=== PATIENT | female | born 1975 | race Caucasian/White ===

== ENCOUNTER → 2018-05-25 | Outpatient (CLI) | payer BC ==
--- NOTE | 2018-05-30 12:15 | MM ---
Reason for exam: screening (asymptomatic). Last mammogram was performed 2 years and 2 months ago. History: Family history of breast cancer in mother at age 52. Physical Findings: A clinical breast exam by your physician is recommended on an annual basis and results should be correlated with mammographic findings. MG 3D Screening Mammo W/Cad Bilateral CC and MLO view(s) were taken. XCCL view(s) were taken of the left breast. Prior study comparison: April 06, 2016, bilateral MG diagnostic mammo w CAD LINO. September 30, 2015, right breast MG 3d diag mammo w/cad RT. The breast tissue is heterogeneously dense. This may lower the sensitivity of mammography. There is chronic nodularity in the left breast. There is no dominant lesion. No significant changes when compared with prior studies. ASSESSMENT: Benign, BI-RAD 2 RECOMMENDATION: Routine screening mammogram of both breasts in 1 year.
== END | disposition home or self-care (01) ==
LOC: RADMAMWWP 12:54
PROVIDERS: ATTEND Obstetrics & Gynecology
DX: Z12.31 Encounter for screening mammogram for malignant neoplasm of breast (principal); Z80.3 Family history of malignant neoplasm of breast
CPT/HCPCS: 77063; 77067

== ENCOUNTER → 2019-05-25 | Outpatient (CLI) | payer BC ==
--- NOTE | 2019-05-26 09:15 | MM ---
Reason for exam: screening (asymptomatic). Last mammogram was performed 1 year ago. History: Family history of breast cancer in mother at age 52. Physical Findings: A clinical breast exam by your physician is recommended on an annual basis and results should be correlated with mammographic findings. MG 3D Screening Mammo W/Cad Bilateral CC, MLO, and XCCL view(s) were taken. Prior study comparison: May 25, 2018, bilateral MG 3d screening mammo w/cad. April 06, 2016, bilateral MG diagnostic mammo w CAD LINO. The breast tissue is heterogeneously dense. This may lower the sensitivity of mammography. No suspicious abnormality. No significant changes when compared with prior studies. ASSESSMENT: Negative, BI-RAD 1 RECOMMENDATION: Routine screening mammogram of both breasts in 1 year.
== END | disposition home or self-care (01) ==
LOC: RADMAMWWP 16:47
PROVIDERS: ATTEND Obstetrics & Gynecology
DX: Z12.31 Encounter for screening mammogram for malignant neoplasm of breast (principal); Z80.3 Family history of malignant neoplasm of breast
CPT/HCPCS: 77063; 77067

== ENCOUNTER → 2021-07-04 | Outpatient (CLI) | payer BC ==
--- NOTE | 2021-07-08 08:30 | MM ---
Reason for exam: screening (asymptomatic). Last mammogram was performed 1 year ago. History: Family history of breast cancer in mother at age 52. Physical Findings: A clinical breast exam by your physician is recommended on an annual basis and results should be correlated with mammographic findings. MG 3D Screening Mammo W/Cad Bilateral CC and MLO view(s) were taken. Prior study comparison: July 03, 2020, bilateral MG 3d screening mammo w/cad. May 25, 2019, bilateral MG 3d screening mammo w/cad. The breast tissue is heterogeneously dense. This may lower the sensitivity of mammography. No significant changes when compared with prior studies. ASSESSMENT: Benign, BI-RAD 2 RECOMMENDATION: Routine screening mammogram of both breasts in 1 year.
== END | disposition home or self-care (01) ==
LOC: RADMAMWWP 15:59
PROVIDERS: ATTEND Obstetrics & Gynecology
DX: Z12.31 Encounter for screening mammogram for malignant neoplasm of breast (principal); Z80.3 Family history of malignant neoplasm of breast
CPT/HCPCS: 77063; 77067

== ENCOUNTER → 2022-03-03 | Outpatient (CLI) | payer BC ==
[2022-03-03 22:45] LABS: Basophils # (A) 0.05 X 10*3/uL (0.00-0.10); Basophils % (A) 0.5 %; Eosinophils # (A) 0.22 X 10*3/uL (0.04-0.35); Eosinophils % (A) 2.1 %; HCT 41.1 % (37.2-46.3); HGB 12.6 g/dL (12.0-15.0); Immature Grans, Automated 0.4 %; Lymphocytes # (A) 3.07 X 10*3/uL (0.90-5.00); Lymphocytes % (A) 28.7 %; MCH 27.1 pg (27.0-32.0); MCHC 30.7 g/dL (32.0-37.0); MCV 88.4 fL (80.0-97.0); Mean Platelet Volume 12.4 fL (9.5-12.2); Monocytes # (A) 0.56 X 10*3/uL (0.20-1.00); Monocytes % (A) 5.2 %; NRBC Per 100 WBC 0 /100 WBCS (0.0-0.0); Neutrophils # (A) 6.74 X 10*3/uL (1.80-7.70); Neutrophils % (A) 63.1 %; Platelet Count 336 X 10*3/uL (140-440); RBC 4.65 X 10*6/uL (4.10-5.20); RDW 14.5 % (11.5-14.5); WBC 10.68 X 10*3/uL (4.50-10.00)
== END | disposition home or self-care (01) ==
LOC: LABPAT 16:06
PROVIDERS: ATTEND Surgery
DX: Z01.812 Encounter for preprocedural laboratory examination (principal); K43.2 Incisional hernia without obstruction or gangrene
CPT/HCPCS: 85025; 93005

== ENCOUNTER 2022-03-10 05:50 | Day surgery (SDC) | payer BC ==
[~2022-03-10 05:50] MED LIST: ACETAMINOPHEN TAB 500 MG TAB PO PRN; HEPARIN SODIUM,PORCINE/PF 5,000 UNIT/0.5 ML SYRINGE SQ PRN
[2022-03-10] MEDS ORDERED: SCOPOLAMINE 1 MG/72 HR PATCH TRANSDERM ONE (05:53)
[2022-03-10] MEDS ORDERED: LACTATED RINGERS 1,000 ML IV SCH (05:53)
[2022-03-10] MEDS ORDERED: DEXAMETHASONE SOD PHOSPHATE 4 MG/ML 1 ML VIAL IV ONE (05:53)
[2022-03-10] MEDS ORDERED: LIDOCAINE 1% (10MG/ML) FOR IV START INTRADERMA PRN (05:53)
[2022-03-10] MEDS ORDERED: METOCLOPRAMIDE 5 MG/ML 2 ML VIAL IVP PRN (05:53)
[2022-03-10] MEDS ORDERED: ONDANSETRON 4 MG/2 ML VIAL IVP ONE (05:53)
[2022-03-10] MEDS ORDERED: HYDROmorphone 0.5 MG/0.5 ML SYRINGE IVP PRN (05:53)
[2022-03-10 06:40] LABS: Glucose,Whole Blood 93 mg/dL (75-99)
[2022-03-10] MEDS ORDERED: MIDAZOLAM 2 MG/2 ML VIAL IVP ONE (06:52)
[2022-03-10 07:09] VITALS: RESP 16
[2022-03-10] MEDS ORDERED: fentaNYL (PF) 50 MCG/ML 2 ML AMP ONE (07:48)
[2022-03-10] MEDS ORDERED: SUGAMMADEX SODIUM 200 MG/2 ML SDV IV ONE (07:48)
[2022-03-10] MEDS ORDERED: ROCURONIUM 10 MG/ML (5 ML VIAL) IV ONE (07:48)
[2022-03-10] MEDS ORDERED: LIDOCAINE 2% INJ 20 MG/ML (2 ML VIAL) ONE (07:48)
[2022-03-10] MEDS ORDERED: MIDAZOLAM 2 MG/2 ML VIAL ONE (07:48)
[2022-03-10] MEDS ORDERED: SUCCINYLCHOLINE CHLORIDE 100 MG/5 ML SYR IV ONE (07:48)
[2022-03-10] MEDS ORDERED: KETOROLAC 30 MG/ML 1 ML VIAL ONE (07:48)
[2022-03-10] MEDS ORDERED: ROPIVACAINE 5 MG/ML 30 ML VIAL ONE (07:48)
[2022-03-10] MEDS ORDERED: PROPOFOL 10 MG/ML 20 ML VIAL IV ONE (07:48)
[2022-03-10] MEDS ORDERED: BUPIVACAIN-EPI 0.25%-1:200,000 30 ML VIAL SQ ONE ×2 (08:11→08:15)
--- NOTE | 2022-03-10 08:55 | P.GSHP ---
History of Present Illness H&P Date: 03/10/22 Chief Complaint: Ventral hernia A 46-year-old female. Patient's morbid obese. Patient developed a ventral hernia located approximately 5 inches above her umbilicus. She presents today for laparoscopic robotic system repair. 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 Past Anesthesia/Blood Transfusion Reactions: No Reported Reaction Smoking Status: Never smoker Medications and Allergies Home Medications Medication Instructions Recorded Confirmed Type No Known Home Medications 03/06/22 03/06/22 History Allergies Allergy/AdvReac Type Severity Reaction Status Date / Time No Known Allergies Allergy Verified 03/10/22 06:20 Surgical - Exam Vital Signs Temp Pulse Resp BP Pulse Ox 97.4 F L 81 20 148/97 99 03/10/22 06:28 03/10/22 06:28 03/10/22 06:28 03/10/22 06:28 03/10/22 06:28 - General Morbid obesity well developed, well nourished, no distress - Eyes PERRL - Respiratory normal expansion - Cardiovascular Rhythm: regular - Abdomen 5 cm mass midline approximately 5 inches above the umbilicus Abdomen: soft, non tender Assessment and Plan Assessment: Ventral hernia. We'll perform laparoscopic robotic-assisted repair.
[2022-03-10] MEDS ORDERED: LACTATED RINGERS 1,000 ML IV ONE (08:58)
--- NOTE | 2022-03-10 09:00 | P.OP ---
Date of Procedure: 03/10/22 Preoperative Diagnosis: Ventral hernia Postoperative Diagnosis: Incarcerated incisional hernia Adhesions Procedure(s) Performed: Diagnostic laparoscopy Open repair of incarcerated ventral hernia with Prolene mesh Transversus abdominis plane block Anesthesia: NADIRA Surgeon: Aakash Curtis Pathology: none sent Condition: stable Disposition: PACU Description of Procedure: The patient's placed on the operative table in the supine position. She received general endotracheal anesthesia. Her abdomen was prepped and draped in sterile fashion. Using a 5 mm optical trocar a fibrillar trocar was placed into the pleural cavity under direct visualization. There were significant adhesions. At this point in another 5 mm trocar was placed in the left lower quadrant and more adhesions were seen. This point decided perform an open repair. The trochars withdrawn. The skin was incised over top the hernia. Using cautery the subcutaneous tissue divided away from the hernia sac and fascia. The hernia sac was inverted back the pleural cavity. The fascia was then repaired using 0 Ethibond pop-off suture. A transversus abdominis plane block was performed using 1% local Xylocaine. After this is performed a piece of #1 strep excuses buttress the repair. And then Prolene mesh was secured with secure strap tacker. A DEJA drains placed over top the repair and brought through separate stab incision. Live's fascia close 0 Vicryl suture. Skin was closed with inna. Patient tolerated procedu re well sent to recovery in stable condition.
[2022-03-10 09:29] VITALS: TEMP 97.3
[2022-03-10 12:00] VITALS: BP 126/83; PULSE 81
--- NOTE | 2022-03-12 19:39 | P.ANPRN ---
Procedure Note - Anesthesia - Nerve Block Performed Bilateral Rectus Abdominis Single Time Out Performed: Yes Date of Procedure: 03/10/22 Procedure Start Time: 06:51 Procedure Stop Time: 06:57 Location of Patient: PreOp Indication: Acute Post-Operative Pain, Requested by Surgeon Sedation Type: Sedate with meaningful contact maintained Preparation: Sterile Prep Position: Supine Needle Types: Pajunk Needle Gauge: 21 Ultrasound used to visualize needle placement: Yes Ultrasound used to observe medication spread: Yes Blood Aspirated: No Pain Paresthesia on Injection Noted: No Resistance on Injection: Normal Image Stored and Saved: Yes Events: Uneventful and Well Tolerated (ropi .5% 20cc given bilaterally)
== END 2022-03-10 11:55 | disposition home or self-care (01) ==
LOC: OR 05:50
PROVIDERS: ATTEND Surgery
DX: K43.0 Incisional hernia with obstruction, without gangrene (principal); E66.01 Morbid (severe) obesity due to excess calories; Z68.41 Body mass index [BMI] 40.0-44.9, adult; Z98.890 Other specified postprocedural states
CPT/HCPCS: 49561; 49568; 64488; 86900; 86901; 86850; C1781; J2250; J1100; J0690; J2405; J3010; J1885; J2795; J0330; J2704; J1644; J2001; 64999

== ENCOUNTER → 2022-07-06 | Outpatient (CLI) | payer BC ==
--- NOTE | 2022-07-07 18:00 | MM ---
Reason for Exam: Screening (asymptomatic). Last screening mammogram was performed 12 month(s) ago. Patient History: Menarche at age 15. First Full-Term at age 28. Mother had breast cancer, age 52. Risk Values: Brenda 5 year model risk: 1.5%. NCI Lifetime model risk: 18.2%. Prior Study Comparison: 05/25/2019 Bilateral Screening Mammogram, [facility]. 07/03/2020 Bilateral Screening Mammogram, [facility]. 07/04/2021 Bilateral Screening Mammogram, [facility]. Tissue Density: The breast tissue is heterogeneously dense. This may lower the sensitivity of mammography. Findings: Analyzed By CAD. Increasing nodular focal asymmetries central inner left cc view middle to posterior depth. Complex breast tissue on 3-D images. Further evaluation recommended. No new calcification seen. Overall Assessment: Incomplete: need additional imaging evaluation, BI-RAD 0 Management: Special View Mammogram of the left breast. 1. Spot 3-D CC, spot 3-D MLO, and 3-D lateral views (include far posterior tissues). 2. Whole left breast ultrasound, particular attention to the medial half. [facility] will attempt to contact patient to return for supplemental views and ultrasound if indicated. Electronically signed and approved by: Rick Luciano M.D. Radiologist
== END | disposition home or self-care (01) ==
LOC: RADMAMWWP 15:56
PROVIDERS: ATTEND Obstetrics & Gynecology
DX: Z12.31 Encounter for screening mammogram for malignant neoplasm of breast (principal); Z80.3 Family history of malignant neoplasm of breast
CPT/HCPCS: 77063; 77067

== ENCOUNTER → 2022-07-14 | Outpatient (CLI) | payer BC ==
--- NOTE | 2022-07-14 13:07 | MM ---
Reason for Exam: Additional evaluation requested from abnormal screening. Last screening mammogram was performed less than 1 month ago. Patient History: Menarche at age 15. First Full-Term at age 28. Mother had breast cancer, age 52. Risk Values: Brenda 5 year model risk: 1.5%. NCI Lifetime model risk: 18.2%. Prior Study Comparison: 07/03/2020 Bilateral Screening Mammogram, [facility]. 07/04/2021 Bilateral Screening Mammogram, [facility]. 07/06/2022 Bilateral MG 3D screening mammo w/cad, [facility]. Tissue Density: Left: The breast tissue is heterogeneously dense. This may lower the sensitivity of mammography. Findings: Analyzed By CAD. Somewhat obscured masses measuring up to 9 mm in size in the posterior depth upper slight inner aspect are thought to persist on additional views roughly 7 cm distance from nipple on background dense tissue. Overall Assessment: Incomplete: need additional imaging evaluation, BI-RAD 0 Management: Diagnostic Breast Ultrasound of the left breast. Targeted ultrasound left breast. Electronically signed and approved by: Dontrell Cortez M.D.
--- NOTE | 2022-07-14 14:04 | USB ---
Reason for Exam: Additional evaluation requested from abnormal screening. Patient History: Menarche at age 15. First Full-Term at age 28. Mother had breast cancer, age 52. Risk Values: Brenda 5 year model risk: 1.5%. NCI Lifetime model risk: 18.2%. Technique: Method: Targeted. Prior Study Comparison: 07/03/2020 Bilateral Screening Mammogram, [facility]. 07/04/2021 Bilateral Screening Mammogram, [facility]. 07/06/2022 Bilateral MG 3D screening mammo w/cad, [facility]. Findings: The upper inner quadrant of the left breast and the retroareolar of the left breast were scanned. Targeted ultrasound left breast shows a thin-walled cystic cluster measuring 1.2 x 0.5 x 0.9 cm 11:00 position 8 cm distance from nipple. There is additional cystic cluster measuring 1.6 x 0.5 x 1.1 cm 12:00 position 7 cm distance from nipple. There is 9 x 4 x 8 mm oval thin-walled cyst 12:00 position 3 cm distance from nipple. Overall Assessment: Probably benign, BI-RAD 3 Management: Diagnostic Breast Ultrasound of the left breast in 6 months. Diagnostic Mammogram of the left breast in 6 months. No convincing ultrasound evidence for malignancy. Precautionary diagnostic short-term mammogram and ultrasound follow-up is advised. Patient told the findings and results at time of dictation. Electronically signed and approved by: Dontrell Cortez M.D.
== END | disposition home or self-care (01) ==
LOC: RADMAMWWP 12:40
PROVIDERS: ATTEND Obstetrics & Gynecology
DX: R92.8 Other abnormal and inconclusive findings on diagnostic imaging of breast (principal); Z80.3 Family history of malignant neoplasm of breast
CPT/HCPCS: 77061; 77065

== ENCOUNTER → 2023-03-17 | Outpatient (CLI) | payer BC ==
--- NOTE | 2023-03-17 11:24 | MM ---
Reason for Exam: Follow-up at short interval from prior study. Last screening mammogram was performed 9 month(s) ago. Patient History: Menarche at age 15. First Full-Term at age 28. Premenopausal. Mother had breast cancer, age 52. Risk Values: Brenda 5 year model risk: 1.6%. NCI Lifetime model risk: 18.0%. Prior Study Comparison: 07/04/2021 Bilateral Screening Mammogram, [facility]. 07/06/2022 Bilateral MG 3D screening mammo w/cad, [facility]. 07/14/2022 Left MG 3D work up w/cad LT, [facility]. Tissue Density: Left: The breast tissue is heterogeneously dense. This may lower the sensitivity of mammography. Findings: Analyzed By CAD. Similar somewhat obscured masses measuring up to 9 mm in size posterior depth upper slightly inner aspect approximately 7 cm in notable. No definitive new mass or group of suspicious calcifications. Overall Assessment: Incomplete: need additional imaging evaluation, BI-RAD 0 Management: Diagnostic Breast Ultrasound of the left breast. A clinical breast exam by your physician is recommended on an annual basis and results should be correlated with mammographic findings. This exam should not preclude additional follow-up of suspicious palpable abnormalities. Results were given to the patient verbally at the time of exam. Electronically signed and approved by: Naga Gamboa D.O.
--- NOTE | 2023-03-17 11:47 | USB ---
Reason for Exam: Follow-up at short interval from prior study. Patient History: Menarche at age 15. First Full-Term at age 28. Premenopausal. Mother had breast cancer, age 52. Risk Values: Brenda 5 year model risk: 1.6%. NCI Lifetime model risk: 18.0%. Technique: Method: Targeted. Prior Study Comparison: 07/04/2021 Bilateral Screening Mammogram, [facility]. 07/06/2022 Bilateral MG 3D screening mammo w/cad, [facility]. 07/14/2022 Left US breast workup limited LT, [facility]. 07/14/2022 Left MG 3D work up w/cad LT, [facility]. Findings: The upper inner quadrant of the left breast, the axilla of the left breast and the retroareolar of the left breast were scanned. Targeted ultrasound left breast from 11:00 to 12:00 with additional evaluation of the nipple and axilla was performed. There is an elongated cystic lesion with suspected internal debris and well-circumscribed margins with parallel orientation and no posterior features or internal vascularity identified in the left breast at 11:00 8 cm from the nipple measuring 0.8 x 0.4 x 0.8 cm. This probably represents cluster cystic lesion on prior exam. Stable elongated cystic structure within the left breast at 12:00 7 cm the nipple measuring 1.4 x 0.6 x 0.8 cm which may represent a cluster cyst versus a prominent duct. No internal color flow identified. This is parallel in orientation with circumscribed margin. Ovoid well-circumscribed anechoic cyst with posterior acoustic enhancement in the left breast at 12:00 3 cm from the nipple is stable from prior examination and measures 1.1 x 0.4 x 0.8 cm. This is parallel in orientation without internal color flow. Overall Assessment: Benign, BI-RAD 2 Management: Screening Mammogram of both breasts in 6 months. A clinical breast exam by your physician is recommended on an annual basis and results should be correlated with mammographic findings. This exam should not preclude additional follow-up of suspicious palpable abnormalities. Results were given to the patient verbally at the time of exam. Electronically signed and approved by: Naga Gamboa D.O.
== END | disposition home or self-care (01) ==
LOC: RADMAMWWP 10:59
PROVIDERS: ATTEND Obstetrics & Gynecology
DX: R92.8 Other abnormal and inconclusive findings on diagnostic imaging of breast (principal); Z80.3 Family history of malignant neoplasm of breast
CPT/HCPCS: 77061; 77065

== ENCOUNTER → 2023-10-06 | Outpatient (CLI) | payer BC ==
--- NOTE | 2023-10-06 10:07 | MM ---
Reason for Exam: Screening (asymptomatic). Last mammogram was performed 1 year(s) and 3 month(s) ago. Patient History: Menarche at age 15. First Full-Term at age 28. Premenopausal. Mother had breast cancer, age 52. Last menstrual period: 09/10/2023 Risk Values: Brenda 5 year model risk: 1.6%. NCI Lifetime model risk: 18.0%. Prior Study Comparison: 07/06/2022 Bilateral MG 3D screening mammo w/cad, [facility]. 07/14/2022 Left MG 3D work up w/cad LT, [facility]. 03/17/2023 Left MG 3D diag mammo w/cad LT, [facility]. Tissue Density: The breast tissue is heterogeneously dense. This may lower the sensitivity of mammography. Findings: Analyzed By CAD. There is no suspicious group of microcalcifications or new suspicious mass. Overall Assessment: Negative, BI-RAD 1 Management: Screening Mammogram of both breasts in [address] [facility] will attempt to contact patient to return for supplemental views and ultrasound if indicated. Patient should continue monthly self-breast exams. A clinical breast exam by your physician is recommended on an annual basis. This exam should not preclude additional follow-up of suspicious palpable abnormalities. Note on Brenda scores and lifetime risk: 1. A Brenda score greater than 3% is considered moderate risk. If this is the case, consider specialist referral to assess eligibility for a risk reducing agent. 2. If overall lifetime risk for the development of breast cancer is 20% or higher, the patient may qualify for future screening with alternating mammogram and breast MRI. Electronically signed and approved by: Jayden Paulino DO
== END | disposition home or self-care (01) ==
LOC: RADMAMWWP 08:56
PROVIDERS: ATTEND Obstetrics & Gynecology
DX: Z12.31 Encounter for screening mammogram for malignant neoplasm of breast (principal); Z80.3 Family history of malignant neoplasm of breast
CPT/HCPCS: 77063; 77067

== ENCOUNTER → 2024-08-09 | Outpatient (CLI) | payer BC ==
[2024-08-09 16:06] VITALS: BP 126/84; PULSE 90; RESP 18; TEMP 98.5
--- NOTE | 2024-08-09 16:57 | P.SLEEP ---
History of Present Illness DATE: 08/09/2024 CONSULTATION/NEW PATIENT EVALUATION HISTORY OF PRESENT ILLNESS/SLEEP-WAKE EVALUATION: 48-year-old lady had been evaluated in the sleep center for possible obstructive sleep apnea hypopnea syndrome. SLEEP SCHEDULE: Usually sleep schedule from 9 PM to 6:30 AM on weekdays and from 10 PM to 8 AM on weekend. FALLING ASLEEP: No problems with falling asleep. DURING SLEEP: Patient has loud snoring and wakes up from sleep 4 times with up to 4 episodes of nocturia. Positive history of grinding teeth. No history of hypnogogical hallucinations, sleep paralysis, or cataplexy. DURING THE DAY/WAKE STATE: Patient may feel occasional sleepiness during the day. Mccaskill sleepiness scale is 5. Patient usually does not take naps. PAST MEDICAL HISTORY: Hyperlipidemia, sinus problems. PAST SURGICAL HISTORY: Hernia repair. MEDICATIONS: Crestor 10 mg once a day. SOCIAL HISTORY: Please see below. FAMILY HISTORY: Hypertension, heart problems, sleep apnea. REVIEW OF SYSTEMS: Snoring, multiple awakenings from sleep. No fevers. No double vision. No recent chest pain. No shortness of breath. No abdominal pain. No bleeding episodes. No blood in urine. No seizure episodes. PHYSICAL EXAMINATION: GENERAL: A pleasant patient without any distress. VITAL SIGNS: Please see below, weight 290.8 pounds, BMI 49.0. HEENT: PERRLA, EOMI. Evaluation of oropharynx showed tongue protrudes midline, low position of soft palate Mallampati 4. NECK: Supple. No JVD. Thyroid is not palpable. 18.5 inches in circumference. LUNGS: Clear to percussion and to auscultation. Good air exchange. No wheezing or rhonchi. HEART: S1, S2 regular. No murmurs, gallops or rubs. ABDOMEN: Soft and nontender. Bowel sounds are present. No organomegaly appreciated. EXTREMITIES: No clubbing or cyanosis. LEARNING SUPPORT RESOURCE ROOM TEACHER: Awake, alert, and oriented x3. Cranial nerves 2 to 7 intact. There is no fasciculation or atrophy noted. No focal deficits observed. ASSESSMENT: 1. Loud snoring, multiple awakenings from sleep, extremely low position of soft palate Mallampati 4, wide neck 18.5 inches in circumference. Obstructive sleep apnea hypopnea syndrome. 2. Obesity, BMI 49.0. 3. Hyperlipidemia. 4. History of sinus problems. 5 status post hernia repair. PLAN: 1. Home sleep apnea test for evaluation of patient's breathing during sleep. 2. Following plan after reading sleep study. 3. Preferable position during sleep on the side. 4. No driving if patient feels any sleepiness. Patient is aware of civil and criminal liability for unsafe driving. 5. Sleep hygiene with regular sleep time for at least 7.5-8 hours. 6. Watching and losing weight. Thank you very much for referring this patient for consultation. Sincerely, Robert Barron MD, PhD, FAASM. Diplomat of [place] [employer], Sleep Medicine Board by [place] [employer] [place] [employer] Representative of [place] [facility] [place] cc: Alejandro Kendrick MD Past Medical History Past Medical History: Hyperlipidemia Additional Past Medical History / Comment(s): possible sleep apnea but no sleep study yet, snore, sinus headaches, told I stopped breathing when I had my colonscopy. 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 Smoking Status: Never smoker Past Alcohol Use History: Occasional Past Drug Use History: None Reported - Past Family History Father Family Medical History: Hyperlipidemia, Hypertension, Sleep Apnea/CPAP/BIPAP Additional Family Medical History / Comment(s): Valve replacement and aneurysm on his heart (surgically repaired), Medications and Allergies Home Medications Medication Instructions Recorded Confirmed Type Acetaminophen Tab [Tylenol] 650 mg PO Q6H #30 tab 03/10/22 Rx Docusate [Colace] 100 mg PO BID #20 capsule 03/10/22 Rx Ibuprofen [Motrin] 600 mg PO Q6HR PRN #40 tab 03/10/22 Rx oxyCODONE HCL [OxyIR] 5 mg PO Q6H PRN 3 Days #10 tab 03/10/22 Rx Rosuvastatin [Crestor] 10 mg PO DAILY 08/09/24 08/09/24 History Allergies Allergy/AdvReac Type Severity Reaction Status Date / Time No Known Allergies Allergy Verified 03/10/22 06:20 Physical Exam Vitals: Vital Signs Temp Pulse Resp BP Pulse Ox 08/09/24 16:03 98.5 F 90 18 126/84 95 Intake and Output 08/09/24 08/09/24 08/09/24 06:59 14:59 22:59 Other: Weight 131.769 kg Sleep Note - Sleep Data ESS Total: 5 - Sleep Note Sleep Note: Temperature: 98.5 F Pulse Rate: 90 Respiratory Rate: 18 Blood Pressure: 126/84 SpO2: 95 Height: 5 ft 4.5 in Weight: 131.769 kg BMI: Neck Circumference: 18.5
== END ==
LOC: 3 N SLEEP 15:24
PROVIDERS: ATTEND Internal Medicine
CPT/HCPCS: 99211

== ENCOUNTER → 2024-08-23 | Outpatient (CLI) | payer BC ==
--- NOTE | 2024-08-24 11:27 | P.PCN ---
Description of Procedure: CLINICAL: A home sleep apnea test has been done for confirmation of possible obstructive sleep apnea-hypopnea syndrome. DESCRIPTION OF PROCEDURE: RESULTS: Recording time was 8 hours 14 minutes. Evaluation time was 8 hours 2 minutes. Evaluation time is sufficient for making conclusion about results of the test. Raw data of sleep recording has been reviewed and is adequate. Respiratory channel showed 112 apneas and 205 hypopneas. Apnea-hypopnea index was 39.4 per hour. Pulse rate in the range between minimum 47, maximum 132, average 69 by computer calculation. Lowest desaturation was 78%. IMPRESSION: 1. Severe Obstructive Sleep Apnea Hypopnea Syndrome. Please see other impressions from consultation. PLAN: 1. The patient should have PAP titration for correction of respiratory abnormallities during sleep. 2. I will see patient for follow up visit to discuss results of the test, evaluate clinical response on treatment with PAP therapy and make any necessary adjustments related to mask fitting, pressure, and humidification. 3. Watching and losing weight. 4. Sleep hygiene with regular time in bed for at least 8 hours. 5. No driving if feeling any sleepiness. Thank you very much for allowing me to participate in the management of your patient. Sincerely, Robert Barron MD, PhD, FAASM Diplomat of [place] [employer] Sleep Medicine Board of [place] [employer] [facility] Administrative Assistant of [facility] [place] cc: Alejandro Kendrick MD
== END ==
LOC: 3 N SLEEP 16:56
PROVIDERS: ATTEND Internal Medicine
DX: G47.33 Obstructive sleep apnea (adult) (pediatric) (principal)

== ENCOUNTER 2024-09-24 19:13 | Outpatient (CLI) | payer BC ==
--- NOTE | 2024-09-27 12:24 | P.PCN ---
Description of Procedure: CLINICAL: Titration with positive air pressure has been done for correction of respiratory abnormalities during sleep. DESCRIPTION OF PROCEDURE: The standard montage for clinical polysomnography included the electroencephalogram, the electrocardiogram, the mentalis surface electromyography and Lead II cardiography. The respiratory battery consisted of measurements of nasal /buccal air flow, pressure transducer measurements from the nose, thoracic and /or abdominal effort and intercostal surface electromyography. Video monitoring has been done to check for any parasomnia events. Nocturnal oxyhemoglobin saturations were obtained by finger oximetry. Step-mai titration with positive airway pressure was utilized to control respiratory events. Raw data of sleep recording has been reviewed and is adequate. RESULTS: Sleep efficiency was decreased slightly to 81.8%. Latency to sleep onset was normal 13.5 minutes.]. Sleep architecture showed stage N1 was normal 8.2%, Delta sleep was not good range 23.4%, REM sleep was decreased to 11.9%. Heart rate was minimum 74 BPM, maximum 83 BPM, average 78 BPM. EMG showed 0.8 periodic limb movements per hour with 0.3 micriarousals per hour. PAP titration have been done with CPAP up to the pressure 10 cm H2O. The best results were at the pressure 10 cm H2O. Apnea hypopnea index reduced to 7.5 at that pressure patient was in non-REM sleep and REM sleep. IMPRESSION: 1. Obstructive sleep apnea hypopnea syndrome mostly on controle with PAP treatment. 2. No significant periodic limb movements have been documented. Please see other impressions from consultation. PLAN: 1. The patient will have treatment with positive air pressure equipment with the level of pressure AutoPAP 5-12 cm H2O and should use it every night for the whole night. 2. Watching and losing weight. 3. Sleep hygiene with regular time in bed for at least 8 hours. 4. No driving if feeling any sleepiness. 5. I will see the patient for follow up visit to explain the results of the test, recommendations, check compliance with treatment and make any necessary adjustment related to mask fitting, pressure and humidification. Thank you very much for allowing me to participate in the management of your patient. Sincerely, Robert Barron MD, PhD, FAASM Diplomat of [place] [employer] Sleep Medicine Board of [place] [employer] Intern of [facility] cc: Alejandro Kendrick MD
== END 2024-09-25 17:05 | disposition home or self-care (01) ==
LOC: 3 N SLEEP 19:13
PROVIDERS: ATTEND Internal Medicine
DX: G47.33 Obstructive sleep apnea (adult) (pediatric) (principal)
CPT/HCPCS: 95811

== ENCOUNTER → 2024-10-18 | Outpatient (CLI) | payer BC ==
--- NOTE | 2024-10-19 07:26 | MM ---
Reason for Exam: Screening (asymptomatic). Last mammogram was performed 1 year(s) and 1 month(s) ago. Patient History: Menarche at age 15. First Full-Term at age 28. Premenopausal. Mother had breast cancer, age 52. Risk Values: Brenda 5 year model risk: 1.7%. NCI Lifetime model risk: 17.8%. Prior Study Comparison: 07/14/2022 Left MG 3D work up w/cad LT, [facility]. 03/17/2023 Left MG 3D diag mammo w/cad LT, [facility]. 10/06/2023 Bilateral MG 3D screening mammo w/cad, [facility]. Tissue Density: The breasts are heterogeneously dense, which may obscure small masses. Findings: Analyzed By CAD. Right breast: There is no suspicious group of microcalcifications or new suspicious mass. Stable parenchyma given differences in technique. Left breast: There is no suspicious group of microcalcifications or new suspicious mass. Stable parenchyma given differences in technique. Nodular changes posterior nipple and slightly medial and CC view not significantly changed may be slightly smaller compared to prior exams. Overall Assessment: Benign, BI-RAD 2 Management: Screening Mammogram of both breasts in [address] [facility] will attempt to contact patient to return for supplemental views and ultrasound if indicated. Patient should continue monthly self-breast exams. A clinical breast exam by your physician is recommended on an annual basis. This exam should not preclude additional follow-up of suspicious palpable abnormalities. Note on Brenda scores and lifetime risk: 1. A Brenda score greater than 3% is considered moderate risk. If this is the case, consider specialist referral to assess eligibility for a risk reducing agent. 2. If overall lifetime risk for the development of breast cancer is 20% or higher, the patient may qualify for future screening with alternating mammogram and breast MRI. [facility], , 10/19/2024 7:23 AM. Electronically signed and approved by: Jayden Paulino DO
== END | disposition home or self-care (01) ==
LOC: RADMAMWWP 16:08
PROVIDERS: ATTEND Pediatrics
DX: Z12.31 Encounter for screening mammogram for malignant neoplasm of breast (principal); R92.333 Mammographic heterogeneous density, bilateral breasts; Z80.3 Family history of malignant neoplasm of breast
CPT/HCPCS: 77063; 77067

== ENCOUNTER 2024-10-30 13:56 | Emergency (ER) | payer OTHER, BC ==
[2024-10-30 14:06] VITALS: RESP 20; TEMP 97.6
--- NOTE | 2024-10-30 14:19 | ED ---
Lower Extremity Injury HPI - General Chief Complaint: Extremity Injury, Lower Stated Complaint: right hip pain Time Seen by Provider: 10/30/24 14:12 Source: patient, RN notes reviewed Mode of arrival: ambulatory Limitations: no limitations - History of Present Illness Initial Comments: This is a 48-year-old female who presents to the emergency department for right hip pain. Patient slipped and fell this morning on a crack in the ground. She landed on her right side. Denies hitting her head or any loss of conscious. Not taking any blood thinners. She had x-rays done outpatient and there was concern about a right hip fracture, and she was sent here for a CT scan. She is still able to ambulate. MD Complaint: hip injury - Related Data Home Medications Medication Instructions Recorded Confirmed Rosuvastatin [Crestor] 10 mg PO DAILY 08/09/24 08/09/24 Previous Rx's Medication Instructions Recorded Acetaminophen Tab [Tylenol] 650 mg PO Q6H #30 tab 03/10/22 Docusate [Colace] 100 mg PO BID #20 capsule 03/10/22 Ibuprofen [Motrin] 600 mg PO Q6HR PRN #40 tab 03/10/22 oxyCODONE HCL [OxyIR] 5 mg PO Q6H PRN 3 Days #10 tab 03/10/22 Allergies Allergy/AdvReac Type Severity Reaction Status Date / Time No Known Allergies Allergy Verified 10/30/24 14:06 Review of Systems ROS Statement: Those systems with pertinent positive or pertinent negative responses have been documented in the HPI. ROS Other: All systems not noted in ROS Statement are negative. Past Medical History Past Medical History: Hyperlipidemia Additional Past Medical History / Comment(s): possible sleep apnea but no sleep study yet, snore, sinus headaches, told I stopped breathing when I had my colonscopy. 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 Past Anesthesia/Blood Transfusion Reactions: No Reported Reaction Past Psychological History: No Psychological Hx Reported Smoking Status: Never smoker Past Alcohol Use History: Occasional Past Drug Use History: None Reported - Past Family History Father Family Medical History: Hyperlipidemia, Hypertension, Sleep Apnea/CPAP/BIPAP Additional Family Medical History / Comment(s): Valve replacement and aneurysm on his heart (surgically repaired), General Exam Limitations: no limitations General appearance: alert, in no apparent distress Head exam: Present: atraumatic, normocephalic, normal inspection Respiratory exam: Present: normal lung sounds bilaterally. Absent: respiratory distress, wheezes, rales, rhonchi, stridor Cardiovascular Exam: Present: regular rate, normal rhythm, normal heart sounds. Absent: systolic murmur, diastolic murmur, rubs, gallop, clicks Neurological exam: Present: alert, oriented X3, CN II-XII intact Psychiatric exam: Present: normal affect, normal mood Skin exam: Present: warm, dry, intact, normal color. Absent: rash Course Vital Signs 10/30/24 14:03 Temperature 97.6 F Pulse Rate 101 H Respiratory 20 Rate Blood Pressure 131/91 O2 Sat by Pulse 96 Oximetry Medical Decision Making - Medical Decision Making This is a 48 year old female who presents to the emergency department for right hip pain from a fall. Was pt. sent in by a medical professional or institution? @ -No Did you speak to anyone other than the patient for history? @ -No Did you review nursing and triage notes? @ -Yes, and I agree, it is accurate with regards to the patient's symptoms. Were old charts reviewed? @ -X-ray of the right hip and AP pelvis from earlier today demonstrating a questionable deformity along the upper margin of the right femoral neck that is more likely to be positional. However, CT scan is advised for better evaluation. Differential Diagnosis? @ -Differential Musculoskeletal Muscular strain, contusion, ligament sprain, fracture, arthritis, septic arthritis, bursitis, cellulitis, muscle spasm, nerve compression, DVT, arterial occlusion, herpes zoster, electrolyte abnormality, tumor.... This is not meant to be in all inclusive list EKG interpreted by me (3pts min.)? @ -Not obtained X-rays interpreted by me (1pt min.)? @ -Not obtained CT interpreted by me (1pt min.)? @ -CT scan of the pelvis obtained. Interpretation identifies no acute fractures. U/S interpreted by me (1pt. min.)? @ -Not obtained What testing was considered but not performed? (CT, X-rays, U/S, labs)? Why? @ -None What meds were considered but not given? Why? @ -None Did you discuss the management of the patient with other professionals? @ -No Did you reconcile home meds? @ -No Was smoking cessation discussed for >3mins.? @ -No Was critical care preformed (if so, how long)? @ -No Were there social determinants of health that impacted care today? How? (Homelessness, low income, unemployed, alcoholism, drug addiction, transportation, low edu. Level, literacy, decrease access to med. care, group home, rehab)? @ -No Was there de-escalation of care discussed even if they declined? (Discuss DNR or withdrawal of care, Hospice)? @ -No What co-morbidities impacted this encounter? (DM, HTN, Smoking, COPD, CAD, Cancer, CVA, Hep., AIDS, mental health diagnosis, sleep apnea, morbid obesity)? @ -None Was patient admitted / discharged? @ -Discharged. Patient had x-rays on an outpatient basis earlier today and the x-ray of the right hip had a questionable deformity along the femoral neck and she was sent here for a CT scan to rule out a fracture. CT scan of the pelvis reveals no acute fracture or dislocation. She was incidentally noted to have a right ovarian indeterminate cystic lesion that will need follow-up on an outpatient basis. Findings reviewed with the patient. She was still able to ambulate without difficulty. Advised ibuprofen and Tylenol as needed for pain relief and follow-up with her PCP for reevaluation and ovarian cyst follow-up. Patient discharged home in stable condition. Case discussed with ED attending Dr. Emerson. Return precautions reviewed in depth, the patient is instructed to return to the emergency department with any new, worsening, or concerning symptoms. Patient verbalized understanding. Undiagnosed new problem with uncertain prognosis? @ -None Drug Therapy requiring intensive monitoring for toxicity (Heparin, Nitro, Insulin, Cardizem)? @ -None Were any procedures done? @ -None Diagnosis/symptom? @ -Fall, right hip contusion Acute, or Chronic, or Acute on Chronic? @ -Acute Uncomplicated (without systemic symptoms) or Complicated (systemic symptoms)? @ -Uncomplicated Side effects of treatment? @ -None Exacerbation, Progression, or Severe Exacerbation] @ -Not applicable Poses a threat to life or bodily function? @ -No - Radiology Data Radiology results: report reviewed, image reviewed Disposition Clinical Impression: Fall, Injury of right hip Disposition: HOME SELF-CARE Instructions (If sedation given, give patient instructions): Hip Contusion (ED) Additional Instructions: Return to the emergency department with any new, worsening, or concerning symptoms. Alternate with ibuprofen and Tylenol as needed for pain relief. You can also ice the painful areas for 15 to 20 minutes every 2-3 hours. Follow up with your primary care provider in 1-2 days. Is patient prescribed a controlled substance at d/c from ED?: No Referrals: Alejandro Kendrick MD [Primary Care Provider] - 1-2 days Time of Disposition: 15:15
--- NOTE | 2024-10-30 15:10 | CT ---
EXAMINATION TYPE: CT pelvis wo con CT DLP: 1291.4 mGycm, Automated exposure control for dose reduction was used. DATE OF EXAM: 10/30/2024 2:42 PM COMPARISON: Right hip and pelvic radiograph 10/30/2024 CLINICAL INDICATION:Female, 48 years old with history of Right hip pain from fall, abnormal x-ray; ri ght hip pain from fall TECHNIQUE: Standard CT of the pelvis without IV or oral contrast. Lack of IV or oral contrast limit s evaluation of solid and hollow organ viscera. Coronal and sagittal reformats were performed. 3-D re formats of the pelvic bones were created on a separate workstation. FINDINGS: BLADDER: Underdistended but grossly unremarkable REPRODUCTIVE: Unremarkable anteverted noncontrast appearance of the uterus. Right ovarian 5.2 cm cyst ic lesion. BOWEL: No focal bowel wall thickening or surrounding inflammatory changes. No evidence of bowel obstr uction. PERITONEUM: No evidence of pneumoperitoneum or free fluid. VASCULATURE: Unremarkable MUSCULOSKELETAL: No acute osseous abnormalities. Degenerative changes of the pubic symphysis. SI join ts are intact. LYMPH NODES: No gross evidence for lymphadenopathy. SOFT TISSUE/ABDOMINAL WALL: Scarring of the midline anterior abdominal wall with small fat filled raisa tral wall hernia. Small fat filled right inguinal hernia. IMPRESSION: 1. No acute fracture or dislocation. 2. Degenerative changes of the pubic symphysis. 3. Right ovarian indeterminate 5.2 cm cystic lesion. Recommend further evaluation with outpatient pel abdi ultrasound. [facility], , 10/30/2024 3:07 PM
[2024-10-30 15:33] VITALS: BP 132/88; PULSE 102
== END 2024-10-30 15:33 | disposition home or self-care (01) ==
LOC: EC 13:56
DX: S70.01XA Contusion of right hip, initial encounter (principal); W01.0XXA Fall on same level from slipping, tripping and stumbling without subsequent striking against object, initial encounter
CPT/HCPCS: 72192; 99284

== ENCOUNTER → 2024-10-30 | Outpatient (CLI) | payer OTHER ==
--- NOTE | 2024-10-30 11:50 | XR ---
EXAMINATION TYPE: XR hand complete RT DATE OF EXAM: 10/30/2024 COMPARISON: NONE CLINICAL INDICATION: Female, 48 years old with history of S60.221A contusion R hand; TECHNIQUE: Three views are submitted. FINDINGS: The osseous structures are intact. The joint spaces are preserved and there is no acute fracture or dislocation. IMPRESSION: 1. No definite acute fracture or dislocation if symptoms persist, follow-up study in 7 to 10 days wo uld be suggested [facility], , 10/30/2024 11:47 AM
--- NOTE | 2024-10-30 11:52 | XR ---
EXAMINATION TYPE: XR humerus RT DATE OF EXAM: 10/30/2024 COMPARISON: NONE CLINICAL INDICATION: Female, 48 years old with history of S40.021A Contusion R upper arm; TECHNIQUE: 2 views submitted. FINDINGS: The osseous structures are intact. No acute fracture or dislocation. Mild hypertrophic change of the AC joint. IMPRESSION: 1. No acute fracture or dislocation. [facility], , 10/30/2024 11:49 AM
--- NOTE | 2024-10-30 11:53 | XR ---
EXAMINATION TYPE: XR wrist complete RT DATE OF EXAM: 10/30/2024 COMPARISON: NONE CLINICAL INDICATION: Female, 48 years old with history of S60.211A contusion R wrist; TECHNIQUE: Four views submitted. FINDINGS: The osseous structures are intact. The joint spaces are preserved and there is no acute fracture or dislocation. IMPRESSION: 1. No definite acute fracture or dislocation if symptoms persist, follow-up study in 7 to 10 days wo uld be suggested [facility], , 10/30/2024 11:51 AM
--- NOTE | 2024-10-30 13:06 | XR ---
EXAMINATION TYPE: XR Hip RT and AP Pelvis DATE OF EXAM: 10/30/2024 COMPARISON: NONE CLINICAL INDICATION: Female, 48 years old with history of S70.01XA R Hip contusion; TECHNIQUE: A single AP view of the pelvis is obtained. Two views of the right hip are obtained. FINDINGS: There is a questionable deformity along the upper margin of the femoral head felt to be mos t likely positional. Joint spaces preserved. Osseous structures intact. SI joints patent. No definite acute fracture or dislocation. IMPRESSION: 1. A questionable deformity along the upper margin of the right femoral neck which has a more normal appearance on the AP view of the pelvis. Suspect this is positional. If patient is point point tender or difficulty with weightbearing then correlate with CT. A Yellow level critical message alert has been initiated for Jayden Travis DO via the [facility] Critical Results System on 10/30/2024 1:04 PM. This message alert has been sent to Jayden mays DO via the preferences provided by the clinician for the receipt of Radiology Critical Finding s. Message ID [id number]. [facility], , 10/30/2024 1:04 PM
== END | disposition home or self-care (01) ==
LOC: RADXRMAIN 11:09
PROVIDERS: ATTEND Emergency Medicine
DX: S40.021A Contusion of right upper arm, initial encounter (principal); S60.221A Contusion of right hand, initial encounter; S60.211A Contusion of right wrist, initial encounter; S70.01XA Contusion of right hip, initial encounter; X58.XXXA Exposure to other specified factors, initial encounter
CPT/HCPCS: 73502

== ENCOUNTER → 2024-12-27 | Outpatient (CLI) | payer BC ==
[2024-12-27 15:59] VITALS: BP 136/80; PULSE 88; RESP 16; TEMP 97.9
--- NOTE | 2024-12-27 16:41 | P.PROGSL ---
Subjective DATE: 12/27/2024 FOLLOW UP VISIT. Patient with obstructive sleep apnea hypopnea syndrome return to sleep center for follow-up visit. Recently patient had sleep study which documented obstructive sleep apnea hypopnea syndrome. Patient was initiated on PAP therapy and today is first visit after treatment was started. Patient was able to use PAP equipment every night for the whole night. The patient does not have significant problems with the mask, PAP pressure and humidification. Bicknell sleepiness scale is 3, which is normal. I checked information from PAP unit. PAP unit pressure 5-12, average 11.7 cm H2O. Usage is 97% and 87% for more then 4 hours, average 6.5 hours per night. Leak is perfect 1.0 l/m. Apnea Hypopnea Index is also perfect 1.3. MEDICATIONS: Please see below During physical exam: GENERAL: A pleasant patient without any distress. VITAL SIGNS: See below, weight 297 pounds. HEENT: PERRLA, EOMI.low position of soft palate, Mallapati 4 . NECK: Supple. No JVD. LUNGS: Clear to percussion and to auscultation. Good air exchange. No wheezing or rhonchi. HEART: S1, S2 regular. ABDOMEN: Soft and nontender.[] EXTREMITIES: No clubbing or cyanosis. GLOVE TURNER: Awake, alert, and oriented x3. No focal deficit. Impressions: 1. Severe obstructive sleep apnea-hypopnea syndrome, apnea hypopnea index during home sleep apnea test 39.4. Patient demonstrated great compliance with treatment, benefiting from treatment. 2. Obesity. 3. Hyperlipidemia. 4. History of sinus problems. 5. Status post hernia repair. Plan: 1. Continue using PAP equipment every night for the whole night. 2. To change air filter at least 1-2 times per month. 3. PAP unit should stay lower then position of the head. 4. Advised patient to remove all remaining water from humidifier canister daily and make it dry after each usage. Refill canister with fresh distilled water before each usage. 5. Sleep hygiene with regular time in bed for at least 8 hours. 6. Precautions related to driving. No driving if feel any sleepiness. 7. I will maintain prescription for PAP supplies including mask, tube, filters. 8. Follow up visit in 8 months or earlier if patient has any problems. 9. Watching and losing weight. Thank you very much for allowing me to participate in the management of your patient. Robert Barron MD, PhD, FAASM. Diplomat of [place] [employer], Sleep Medicine Board by [place] [employer] [facility] [place] Objective - Vital Signs Vital Signs: Vital Signs Temp 97.9 F 12/27/24 15:58 Pulse 88 12/27/24 15:58 Resp 16 12/27/24 15:58 BP 136/80 12/27/24 15:58 Pulse Ox 96 12/27/24 15:58 FiO2 Intake & Output 12/26/24 12/27/24 12/27/24 18:59 06:59 18:59 Weight 134.717 kg Home Medications: Home Medications Medication Instructions Recorded Confirmed Type Acetaminophen Tab [Tylenol] 650 mg PO Q6H #30 tab 03/10/22 Rx Docusate [Colace] 100 mg PO BID #20 capsule 03/10/22 Rx Ibuprofen [Motrin] 600 mg PO Q6HR PRN #40 tab 03/10/22 Rx oxyCODONE HCL [OxyIR] 5 mg PO Q6H PRN 3 Days #10 tab 03/10/22 Rx Rosuvastatin [Crestor] 10 mg PO DAILY 08/09/24 08/09/24 History
== END ==
LOC: 3 N SLEEP 15:18
PROVIDERS: ATTEND Internal Medicine
DX: G47.33 Obstructive sleep apnea (adult) (pediatric) (principal); E66.9 Obesity, unspecified; E78.5 Hyperlipidemia, unspecified; Z87.09 Personal history of other diseases of the respiratory system; Z98.890 Other specified postprocedural states
CPT/HCPCS: 99212